=== PATIENT | male | born 2000 | race Caucasian/White ===

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

== ENCOUNTER 2018-05-10 18:32 | Emergency (ER) | payer BC, OTHER ==
[2018-05-10 18:50] VITALS: BP 147/77
--- NOTE | 2018-05-10 19:19 | UC ---
Complaint Male HPI - HPI Summary HPI Summary: C/O dysuria with penile discharge for 2 days. Unprotected sex 4 or 5 days ago. - History of Current Complaint Chief Complaint: UCGU Stated Complaint: URINARY COMPLAINT Time Seen by Provider: 05/10/18 19:10 Hx Obtained From: Patient Onset/Duration: Sudden Onset, Lasting Days - 2, Worse Since - onset Timing: Constant Severity Initially: Mild Severity Currently: Moderate Pain Intensity: 0 Location: Penis Character: Burning Aggravating Factor(s): Voiding Associated Signs And Symptoms: Positive: Dysuria, Penile Discharge - Allergies/Home Medications Allergies/Adverse Reactions: Allergies Allergy/AdvReac Type Severity Reaction Status Date / Time amoxicillin Allergy Intermediate Rash Verified 05/10/18 18:51 Home Medications: Home Medications NK [No Home Medications Reported] 05/10/18 [History Confirmed 05/10/18] PMH/Surg Hx/FS Hx/Imm Hx Previously Healthy: Yes - Surgical History Surgical History: Yes Surgery Procedure, Year, and Place: nasal surgery age 1 - Family History Known Family History: Negative: Cardiac Disease, Hypertension, Diabetes - Social History Occupation: Employed Full-time Lives: With Family Alcohol Use: None Substance Use Type: None Smoking Status (MU): Never Smoked Tobacco - Immunization History Vaccination Up to Date: Yes Review of Systems Genitourinary: Dysuria, Vaginal/Penile Burning, Vaginal/Penile Discharge Is Patient Immunocompromised?: No All Other Systems Reviewed And Are Negative: Yes Physical Exam Triage Information Reviewed: Yes Appearance: Well-Appearing, Well-Nourished, Pain Distress - mild discomfort Vital Signs: Initial Vital Signs Temp 100 F 05/10/18 18:43 Pulse 92 05/10/18 18:43 Resp 16 05/10/18 18:43 BP 147/77 05/10/18 18:43 Pulse Ox 99 05/10/18 18:43 Vital Signs Reviewed: Yes Eyes: Positive: Conjunctiva Clear Neck exam: Normal Respiratory Exam: Normal Cardiovascular Exam: Normal Abdominal Exam: Normal Bowel Sounds: Positive: Present Male Genital Exam: Positive: Normal Genitalia, Urethral Discharge - purulent discharge Complaint Male Course/Dx - Course Course Of Treatment: Patient advised likely gonorhea. Chlamydia will be treated as well. - Differential Dx/Diagnosis Differential Diagnosis/HQI/PQRI: Epididymitis, Testicular Torsion, Urinary Tract Infection Provider Diagnoses: Sexually transmitted infection Discharge - Sign-Out/Discharge Documenting (check all that apply): Patient Departure - Discharge Plan Condition: Stable Disposition: HOME Patient Education Materials: Gonorrhea (ED), Ceftriaxone (By injection), Azithromycin (By mouth), Condom Use (ED), Safe Sex (ED) Referrals: Truong Anguiano MD [Primary Care Provider] - Additional Instructions: The Health Department will call you if your cultures turn up a sexually transmitted infection. I would recommend HIV testing in 3 months. - Billing Disposition and Condition Condition: STABLE Disposition: Home
[2018-05-10] MEDS ORDERED: cefTRIAXone VIAL(*) 250 MG VIAL IM ONE (19:23)
[2018-05-10] MEDS ORDERED: Azithromycin TAB* 250 MG PO ONE (19:23)
--- NOTE | 2018-05-12 16:00 | UC ---
- Progress Note Progress Note: notify pt of results I suggest he see his provider in 3 mos for retesting Discharge - Sign-Out/Discharge Documenting (check all that apply): Post-Discharge Follow Up - Discharge Plan Condition: Stable Disposition: HOME Patient Education Materials: Azithromycin (By mouth), Ceftriaxone (By injection ), Condom Use (ED), Safe Sex (ED), Gonorrhea (ED) Referrals: Truong Anguiano MD [Primary Care Provider] - Additional Instructions: The Health Department will call you if your cultures turn up a sexually transmitted infection. I would recommend HIV testing in 3 months. - Billing Disposition and Condition Condition: STABLE Disposition: Home
== END 2018-05-10 19:50 | disposition home or self-care (01) ==
LOC: UCCORT 18:32
DX: A63.8 Other specified predominantly sexually transmitted diseases (principal); R36.9 Urethral discharge, unspecified; R30.0 Dysuria; Z88.0 Allergy status to penicillin
CPT/HCPCS: 81003; 87086; 87491; 87591; 96372; 99212; A9270-GY; G0463; J0696

== ENCOUNTER 2018-10-17 17:41 | Emergency (ER) | payer OTHER ==
[2018-10-17 18:41] VITALS: BP 132/65
--- NOTE | 2018-10-17 19:02 | UC ---
Throat Pain/Nasal [place] HPI - HPI Summary HPI Summary: C/O sore throat since this afternoon now with pain in the neck down into the upper chest and back. No regular cough or congestion, just feels achy with the sore throat much worse with coughing. - History of Current Complaint Chief Complaint: UCGeneralIllness Stated Complaint: SORE THROAT Time Seen by Provider: 10/17/18 18:52 Hx Obtained From: Patient Onset/Duration: Sudden Onset, Lasting Hours - 3 Severity: Severe Pain Intensity: 8 Cough: None Associated Signs & Symptoms: Positive: Dysphagia, Hoarseness. Negative: Sinus Discomfort, Nasal Discharge - Allergies/Home Medications Allergies/Adverse Reactions: Allergies Allergy/AdvReac Type Severity Reaction Status Date / Time amoxicillin Allergy Intermediate Rash Verified 10/17/18 18:35 PMH/Surg Hx/FS Hx/Imm Hx Respiratory History: Asthma - h/o bronchospasm needing inhaler - Surgical History Surgical History: Yes Surgery Procedure, Year, and Place: nasal surgery age 1 - Family History Known Family History: Negative: Cardiac Disease, Hypertension, Diabetes - Social History Occupation: Employed Full-time Lives: With Family Alcohol Use: None Substance Use Type: None Smoking Status (MU): Never Smoked Tobacco Household Exposure Type: Cigarettes - Immunization History Vaccination Up to Date: Yes Review of Systems All Other Systems Reviewed And Are Negative: Yes ENT: Positive: Sore Throat Musculoskeletal: Positive: Arthralgia - neck Is Patient Immunocompromised?: No Physical Exam Triage Information Reviewed: Yes Appearance: Well-Nourished, Ill-Appearing, Pain Distress - moderate Vital Signs: Initial Vital Signs Temp 99.8 F 10/17/18 18:36 Pulse 91 10/17/18 18:36 Resp 16 10/17/18 18:36 BP 132/65 10/17/18 18:36 Pulse Ox 98 10/17/18 18:36 Vital Signs Reviewed: Yes Eyes: Positive: Conjunctiva Clear ENT: Positive: Pharynx normal, TMs normal, Other - Neck tender SCM bilaterally with tenderness in the posterior cervical musculature. Neck: Positive: Tenderness @ - bilateral SCM and posterior muscles. Respiratory: Positive: Lungs clear, Wheezing - expiratory wheeze with coughing. Cardiovascular Exam: Normal Musculoskeletal Exam: Normal Neurological Exam: Normal Psychological Exam: Normal Skin Exam: Normal Throat Pain/Nasal Course/Dx - Differential Dx/Diagnosis Differential Diagnosis/HQI/PQRI: Laryngitis, Pharyngitis, Tonsillitis, URI Provider Diagnosis: Pharyngitis Discharge - Sign-Out/Discharge Documenting (check all that apply): Patient Departure All imaging exams completed and their final reports reviewed: No Studies - Discharge Plan Condition: Stable Disposition: HOME Prescriptions: predniSONE TAB* [Deltasone 20 MG TAB*] 60 mg PO DAILY #18 tab Patient Education Materials: Pharyngitis (ED), Wheezing (ED), Prednisone (By mouth) Referrals: Truong Anguiano MD [Primary Care Provider] - - Billing Disposition and Condition Condition: STABLE Disposition: Home
== END 2018-10-17 19:17 | disposition home or self-care (01) ==
LOC: UCCORT 17:41
DX: J02.9 Acute pharyngitis, unspecified (principal); Z88.0 Allergy status to penicillin
CPT/HCPCS: 87651; 99212; G0463

== ENCOUNTER 2018-12-31 12:22 | Emergency (ER) | payer OTHER ==
[2018-12-31 13:15] VITALS: BP 114/67
== END 2018-12-31 14:40 | disposition left against medical advice (07) ==
LOC: UCCORT 12:22
DX: Z53.21 Procedure and treatment not carried out due to patient leaving prior to being seen by health care provider (principal)

== ENCOUNTER 2019-05-05 18:47 | Emergency (ER) | payer OTHER ==
[2019-05-05 19:01] VITALS: BP 142/77
[2019-05-05] MEDS ORDERED: Ibuprofen TAB* 600 MG PO ONE (19:02)
--- NOTE | 2019-05-05 19:13 | UC ---
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 a female friend names Reji. -rt hand dominant. -proceeded to work today - [employer]. -no numbing or tingling. cant move 5th digiot well. - History of Current Complaint Chief Complaint: UCUpperExtremity Stated Complaint: LEFT PINKY KNUCKLE PAIN Time Seen by Provider: 05/05/19 19:12 Pain Intensity: 7 - Allergies/Home Medications Allergies/Adverse Reactions: Allergies Allergy/AdvReac Type Severity Reaction Status Date / Time amoxicillin Allergy Intermediate Rash Verified 05/05/19 19:01 PMH/Surg Hx/FS Hx/Imm Hx Previously Healthy: Yes - Surgical History Surgical History: Yes Surgery Procedure, Year, and Place: nasal surgery age 1 - Family History Known Family History: Negative: Cardiac Disease, Hypertension, Diabetes - Social History Alcohol Use: None Substance Use Type: None Smoking Status (MU): Never Smoked Tobacco Household Exposure Type: Cigarettes - Immunization History Vaccination Up to Date: Yes Review of Systems All Other Systems Reviewed And Are Negative: Yes Constitutional: Positive: Negative Skin: Positive: Negative Eyes: Positive: Negative ENT: Positive: Negative Respiratory: Positive: Negative Cardiovascular: Positive: Negative Gastrointestinal: Positive: Negative Motor: Positive: Decreased ROM, Weakness Neurovascular: Positive: Negative Musculoskeletal: Positive: Arthralgia Neurological: Positive: Negative Psychological: Positive: Negative Is Patient Immunocompromised?: No Physical Exam Triage Information Reviewed: Yes Appearance: Well-Appearing, No Pain Distress, Well-Nourished - pleasant Vital Signs: Initial Vital Signs Temp 98 F 05/05/19 18:57 Pulse 80 05/05/19 18:57 Resp 16 05/05/19 18:57 BP 142/77 05/05/19 18:57 Pulse Ox 97 05/05/19 18:57 Vital Signs Reviewed: Yes Respiratory Exam: Normal Cardiovascular Exam: Normal Musculoskeletal: Positive: Other: - left hand w/ mild swelling and bruising on ulnar aspect. tender. able to move 4th and 5th digits but decreased ROM bc pain. CR vbrisk. sensation intact. + 2 radial and ulnar pulse. Neurological Exam: Normal Psychological Exam: Normal Skin Exam: Normal Upper Extremity Course/Dx - Course Course Of Treatment: xray left hand interpreted by me - distal 5th metacarpal fracture -aware that the official rad read will be done in AM. -orthoplast temp cast set by myself in Boxer splint in usual fashion. tolerated well. - Differential Dx/Diagnosis Differential Diagnosis/HQI/PQRI: Fracture (Closed), Strain, Sprain Provider Diagnosis: Closed boxer's fracture Discharge - Sign-Out/Discharge Documenting (check all that apply): Patient Departure All imaging exams completed and their final reports reviewed: No - Discharge Plan Condition: Stable Disposition: HOME Patient Education Materials: Boxer Fracture (ED) Forms: *Work Release Referrals: Truong Anguiano MD [Primary Care Provider] - Joseph Andrade MD [Medical Doctor] - Additional Instructions: Please call ortho tomorrow for an appt in the next 1-2 days. rest. You should not use your left hand until you are cleared to do so. - Billing Disposition and Condition Condition: STABLE Disposition: Home
--- NOTE | 2019-05-06 14:02 | UC ---
- Progress Note Progress Note: Radiologist interpretation of left hand x-ray from May 05, 2019 comes back is angulated fracture of the head of the fifth metacarpal. Provider interpretation of the same date is the same therefore there is no discrepancy. Course/Dx - Diagnoses Provider Diagnoses: Closed boxer's fracture Discharge - Sign-Out/Discharge Documenting (check all that apply): Patient Departure All imaging exams completed and their final reports reviewed: Yes - Discharge Plan Condition: Stable Disposition: HOME Patient Education Materials: Boxer Fracture (ED) Forms: *Work Release Referrals: Joseph Andrade MD [Medical Doctor] - Truong Anguiano MD [Primary Care Provider] - Additional Instructions: Please call ortho tomorrow for an appt in the next 1-2 days. rest. You should not use your left hand until you are cleared to do so. - Billing Disposition and Condition Condition: STABLE Disposition: Home
== END 2019-05-05 20:15 | disposition home or self-care (01) ==
LOC: UCCORT 18:47
DX: S62.337A Displaced fracture of neck of fifth metacarpal bone, left hand, initial encounter for closed fracture (principal); W22.09XA Striking against other stationary object, initial encounter; Y92.9 Unspecified place or not applicable
CPT/HCPCS: 99212; A9270-GY; G0463

== ENCOUNTER 2019-05-18 16:36 | Emergency (ER) | payer OTHER ==
[2019-05-18 16:53] VITALS: BP 139/90
[2019-05-18] MEDS ORDERED: Tetan/Diph/Pertus SYR(Tdap)* 0.5 ML SYR(BOOSTRIX) use SYR IM ONE (16:55)
--- NOTE | 2019-05-18 16:55 | UC ---
Laceration HPI - HPI Summary HPI Summary: 18-year-old male who sustained a laceration to his right MCP joint when he was pulling his hand towards a clean razor, while he was scraping paint off of a window. Last tetanus was approximate 9 years ago. - History Of Current Complaint Chief Complaint: UCLaceration Stated Complaint: LACERATION RIGHT INDEX FINGER Time Seen by Provider: 05/18/19 16:54 Hx Obtained From: Patient Laceration Location: Hand Mechanism Of Injury: Sharp Trauma Onset/Duration: Sudden Onset Severity: Mild Pain Intensity: 0 Aggravating Factors: Movement - Allergies/Home Medications Allergies/Adverse Reactions: Allergies Allergy/AdvReac Type Severity Reaction Status Date / Time amoxicillin Allergy Intermediate Rash Verified 05/18/19 16:45 PMH/Surg Hx/FS Hx/Imm Hx Previously Healthy: Yes - Surgical History Surgical History: Yes Surgery Procedure, Year, and Place: nasal surgery age 1 - Family History Known Family History: Negative: Cardiac Disease, Hypertension, Diabetes - Social History Alcohol Use: None Substance Use Type: None Smoking Status (MU): Never Smoked Tobacco Household Exposure Type: Cigarettes - Immunization History Most Recent Tetanus Shot: PT NOT SURE Vaccination Up to Date: Yes Review of Systems All Other Systems Reviewed And Are Negative: Yes Skin: Positive: Other - Laceration over the right MCP joint approximately 1.0 cm in length. Bleeding is controlled. Is Patient Immunocompromised?: No Physical Exam Triage Information Reviewed: Yes Appearance: Well-Appearing, No Pain Distress, Well-Nourished Vital Signs: Initial Vital Signs Temp 98.7 F 05/18/19 16:45 Pulse 87 05/18/19 16:45 Resp 20 05/18/19 16:45 BP 139/90 05/18/19 16:45 Pulse Ox 100 05/18/19 16:45 Vital Signs Reviewed: Yes Musculoskeletal: Positive: Strength Intact, ROM Intact, No Edema, Other: - Good peripheral pulses neuro sensation capillary refill. Full range of motion with good finger strength with flexion extension against resistance. Neurological: Positive: Alert, Muscle Tone Normal Psychological Exam: Normal Skin: Positive: Other - 1.0 cm laceration over the right MCP joint. Bleeding is controlled. Laceration Repair - Laceration Repair 1 Description: Linear Laceration Size After Repair: Length (cm) - 1.0 cm Modified For Repair: No Type Injection: Local Anesthesia Used: 1.0% Lido Cleansing Completed Via Routine Prep: Yes Irrigation With Pressure Irrigation Device: Yes Closure Material: Sutures Suture Of: SQ Suture Type: Prolene - Sutures placed numbered 3 using 40 prolene Laceration Course/Dx - Course/Dx Course Of Treatment: The laceration was sutured without difficulty and the patient tolerated procedure well. A dry sterile bulky dressing was applied. He is to follow-up with his primary care provider in 10 days for suture removal or sooner signs of infection which were reviewed with the patient and his father. - Diagnosis Provider Diagnosis: Laceration of right hand Discharge - Sign-Out/Discharge Documenting (check all that apply): Patient Departure All imaging exams completed and their final reports reviewed: No Studies - Discharge Plan Condition: Fair Disposition: HOME Patient Education Materials: Care For Your Stitches (DC) Referrals: Truong Anguiano MD [Primary Care Provider] - Additional Instructions: Keep the dressing on for 24 hours then you may apply a knuckle bandaid. Follow- up with Dr. Anguiano in 10 days for suture removal or sooner if signs of infection such as hot, red, tender, red streaks or pus drainage. - Billing Disposition and Condition Condition: FAIR Disposition: Home
[2019-05-18] MEDS ORDERED: Lidocaine 1% MPF ** 5 ML VIAL INJ ONE (16:59)
== END 2019-05-18 17:50 | disposition home or self-care (01) ==
LOC: UCCORT 16:36
DX: S61.210A Laceration without foreign body of right index finger without damage to nail, initial encounter (principal); W26.8XXA Contact with other sharp object(s), not elsewhere classified, initial encounter; Y93.89 Activity, other specified; Y92.9 Unspecified place or not applicable; Z88.0 Allergy status to penicillin
CPT/HCPCS: 12001; 90471; 90715; 99211; G0463

== ENCOUNTER 2019-05-28 09:27 | Emergency (ER) | payer OTHER ==
--- OUTSIDE RECORDS SUMMARY | 2019-05-28 09:44 | XMS REPORT | Continuity of Care Document ---
:2000 External Reference #:[id number] Author Name Ivan Downing Care Team Providers Name Role Phone Truong Anguiano MD Primary Care Physician Unavailable Payers Date Identification Numbers Payment Provider Subscriber Policy Number: [id number] [place] Group Number: [id number] Group Name: Medicaid Tanf/[place] [address] PayID: [id number] Social History Type Date Description Comments Sex Unknown Lives With Alone Occupation [employer] ETOH Use Denies alcohol use Tobacco Use Start: Unknown Patient has never smoked Smoking Status Reviewed: 05/27/19 Patient has never smoked Exercise Type/Frequency Does not exercise Allergies, Adverse Reactions, Alerts Active Allergies Reaction Severity Comments Date Amoxicillin 05/06/2019 Medications Description No Active Medications Vital Signs Date Vital Result Comment 05/27/2019 3:43pm Height 71 inches 5'11" Weight 160.00 lb Heart Rate 73 /min BP Systolic Sitting 122 mmHg BP Diastolic Sitting 84 mmHg Respiratory Rate 14 /min Pain Level 8 O2 % BldC Oximetry 98 % BMI (Body Mass Index) 22.3 kg/m2 05/06/2019 3:13pm Height 71 inches 5'11" Weight 160.00 lb Heart Rate 80 /min BP Systolic Sitting 142 mmHg BP Diastolic Sitting 80 mmHg Respiratory Rate 16 /min Pain Level 9 O2 % BldC Oximetry 98 % BMI (Body Mass Index) 22.3 kg/m2 Encounters Type Date Location Provider Dx Diagnosis Office Visit 05/06/2019 Orthopedic Brianne Villagomez, [phone] Nondisp fx of 2:[facility] neck of fifth metacarpal bone, left hand, init Plan of Treatment Future Appointment(s):06/17/2019 8:00 am - Brian[facility]/27/2019 - Brianne Villagomez M.D.[phone] Nondisplaced fracture of neck of fifth metacarpal bone, left hand, subsequent encounter forfracture with routine healingFollow up:Follow up: As needed
--- OUTSIDE RECORDS SUMMARY | 2019-05-28 09:44 | XMS REPORT | Continuity of Care Document ---
:2000 External Reference #:[id number] Author Name Truong Anguiano MD Address [address] [place] [address] Care Team Providers Name Role Phone Truong Anguiano MD Primary Care Physician Unavailable Payers Date Identification Numbers Payment Provider Subscriber Policy Number: [id number] [facility] PayID: [id number] [address] [place] [address] Policy Number: [id number] Medicaid Colleen Fahey PayID: [id number] [address] [place] [address] Problems Active Problems Provider Date Migraine AMINAH Adams Onset: Heart murmur Truong Anguiano MD Onset: 05/25/2019 Note: fu cardiology Rectal hemorrhage Truong Anguiano MD Onset: 05/25/2019 Note: fu GI Family History Date Family Member(s) Observation Comments Father Anxiety Social History Type Date Description Comments Sex Unknown Tobacco Use Start: Unknown Home is not smoke-free Pets 2 dogs Tobacco Use Start: Unknown Never Smoked Cigars Tobacco Use Start: Unknown Never Smoked A Pipe Tobacco Use Start: Unknown Never Used Smokeless Tobacco ETOH Use occasionally ETOH Use Occasionally consumes alcohol Tobacco Use Start: Unknown tried to smoke cigarettes but does not smoke now Recreational Drug Use Current Drug User Guns in Home Yes Smoke Alarms Yes Currently Active Patient is currently sexually active Condom Use Always Allergies, Adverse Reactions, Alerts Active Allergies Reaction Severity Comments Date Amoxicillin / Clavulanate Urticaria Mild rash 02/21/2017 Inactive Allergies NKDA 05/19/2013 Medications Active Medications SIG Qnty Indications Ordering Provider Date Lactulose 10ml by mouth 237ml R01.1 Truong 05/25/2019 10GM/15ML twice a day MD Annmarie Solution History Medications No Active Unknown 01/05/2019 - Medications 05/25/2019 Azithromycin 1 tab by mouth 5tabs J02.0 Christina Stephan, PHYSICIAN/ALLERGY/IMMUNOLOGY 12/31/2018 - 500mg once a day x 5 01/05/2019 Tablets days No Active Unknown 06/25/2018 - Medications 12/31/2018 Ofloxacin (Otic) 10 drops to left 10ml H60.8x2 Christina Stephan, PHYSICIAN/ALLERGY/IMMUNOLOGY 02/17/2017 - 0.3% ear twice daily 02/27/2017 Solution x 7 days Zithromax 2 tabs day one 6tabs 486 [facility] 02/23/2015 - 250mg one tab day 2-5 MD Annmarie 02/28/2015 Tablets Proair HFA 2-4 puffs 4hr as 1units 486 [facility] 02/23/2015 - needed MD Annmarie 03/05/2015 108(90Base) mcg/Act Aerosol Tessalon 1 tab by mouth 30caps 465.9 [facility] 05/20/2014 - 200mg three times a MD Annmarie 05/30/2014 Capsules day as needed Rizatriptan Benzoate 1 PO on onset of 10tabs V20.2 [facility] 07/27/2013 - headache MD Annmarie 05/31/2014 10mg Tablets Fluoride 1 po qd 90units V20.2 [facility] 07/27/2013 - 1.1(0.5F) mg MD Annmarie 05/31/2014 Chewtabs No Active Unknown 05/19/2013 - Medications 05/19/2013 Rizatriptan Benzoate 1 PO on onset of 10tabs [facility] 05/19/2013 - headache MD Annmarie 07/27/2013 5mg Tablets Miralax 17 grams by 510gm [facility] 05/19/2013 - 3350NF Powder mouth every day MD Annmarie 06/25/2018 as needed mix w/ 8oz water /juice Imitrex 1-2 po q4hrs prn 9tabs [facility] 05/05/2013 - 25mg Tablets MD Annmarie 05/19/2013 Medications Administered in Office Medication SIG Qnty Indications Ordering Provider Date vACCINE Admin Over 18 Truong Anguiano MD 06/25/2018 Injection Immunizations CPT Code Status Date Vaccine Lot # [id number] Given 06/25/2018 Trumenba [id number] 48365 Given 03/13/2017 Trumenba [id number] 50721 Given 08/06/2016 Flu Vaccine, Split [id number] 67254 Given 08/31/2015 Flu Vaccine, Split [id number] 10784 Given 07/06/2015 Hep.B Pediatric/Adolescent [id number] 70738 Given 07/25/2014 Flu Vaccine, Split [id number] 92487 Given 07/27/2013 Flu Vaccine, Split [id number] 26787 Given 07/13/2012 Flu Vaccine, Split 37481 Given 01/10/2012 Gardasil 76522 Given 09/09/2011 Gardasil 41067 Given 07/26/2011 Flu Mist 65827 Given 07/08/2011 Gardasil 73033 Given 08/20/2010 Flu Vaccine, Split 77578 Given 07/03/2010 Menactra/menveo 82062 Given 12/12/2009 Tdap/Adacel 25853 Given 09/14/2009 H1N1 56463 Given 08/01/2009 Flu Mist 17335 Given 07/10/2009 IPV 47356 Given 07/10/2009 Hib Vaccine. 76251 Given 08/09/2008 Flu Mist 39392 Given 06/29/2008 Hepatitis A Vaccine 07332 Given 06/29/2008 Varicella/Chicken Pox Vaccine 95723 Given 09/21/2007 Flu Vaccine, Split 91094 Given 01/02/2007 Flu Vaccine, Split 71857 Given 01/02/2007 Hepatitis A Vaccine 22805 Given 08/01/2005 DTaP 62892 Given 10/25/2004 Flu Mist 69524 Given 05/01/2004 IPV 94945 Given 05/01/2004 MMR 10624 Given 05/01/2004 DTaP 89504 Given 05/01/2004 Hib Vaccine. 32171 Given 12/05/1999 MMR 90660 Given 12/05/1999 Varicella/Chicken Pox Vaccine 07095 Given 12/05/1999 Menactra/menveo 60761 Given 06/11/1999 DTaP 02950 Given 03/28/1999 Hep.B Pediatric/Adolescent 11669 Given 03/28/1999 DTaP 90608 Given 03/28/1999 Hib Vaccine. 51390 Given 01/22/1999 Hep.B Pediatric/Adolescent 25981 Given 01/22/1999 DTaP 66017 Given 01/22/1999 Hib Vaccine. 31008 Given 1998 Hep.B Pediatric/Adolescent Vital Signs Date Vital Result Comment 05/25/2019 10:33am Body Temperature 97.5 F Weight 150.38 lb 12/31/2018 3:32pm Body Temperature 98.0 F BP Systolic 116 mmHg BP Diastolic 58 mmHg Weight 146.50 lb 06/25/2018 12:18pm BP Systolic 125 mmHg BP Diastolic 75 mmHg Heart Rate 72 /min Height 70.75 inches 5'10.75" Height Percentile 66 % Weight 165.00 lb Weight Percentile 66th BMI (Body Mass Index) 23.2 kg/m2 Body Mass Index Percentile 55 % Right Visual Acuity Distance WNL Left Visual Acuity Distance WNL Right ear audiology results pass Left ear audiology results pass 03/13/2017 1:58pm BP Systolic 118 mmHg manual BP Diastolic 62 mmHg manual 03/13/2017 1:52pm BP Systolic 134 mmHg BP Diastolic 67 mmHg Heart Rate 86 /min 02/21/2017 1:13pm Body Temperature 98.2 F 02/17/2017 10:29am Body Temperature 100.5 F BP Systolic 138 mmHg BP Diastolic 79 mmHg Heart Rate 125 /min Height 71 inches 5'11" Height Percentile 72 % Weight 154.00 lb Weight Percentile 58th BMI (Body Mass Index) 21.5 kg/m2 Body Mass Index Percentile 43 % Right Visual Acuity Distance 20/20 Left Visual Acuity Distance 20/20 08/31/2015 8:17am Body Temperature 97.8 F 08/10/2015 10:04am BP Systolic 129 mmHg BP Diastolic 80 mmHg Heart Rate 62 /min Height 71 inches 5'11" Height Percentile 78 % Weight 179.38 lb Weight Percentile 91st BMI (Body Mass Index) 25.0 kg/m2 Body Mass Index Percentile 87 % Right Visual Acuity Distance passed Left Visual Acuity Distance passed Right ear audiology results passed Left ear audiology results passed 07/06/2015 12:29pm Body Temperature 98.4 F 02/23/2015 1:25pm Body Temperature 98.6 F Heart Rate 80 /min Respiratory Rate 24 /min 05/31/2014 9:25am BP Systolic 122 mmHg BP Diastolic 71 mmHg Heart Rate 77 /min Height 70.25 inches 5'10.25" Height Percentile 81 % Weight 193.25 lb Weight Percentile >97th BMI (Body Mass Index) 27.5 kg/m2 Body Mass Index Percentile 96 % Right Visual Acuity Distance 20/20 Left Visual Acuity Distance 20/20 Right ear audiology results passed Left ear audiology results passed 05/20/2014 8:44am Body Temperature 98.2 F 07/27/2013 9:38am BP Systolic 125 mmHg BP Diastolic 88 mmHg Heart Rate 73 /min Height 69 inches 5'9" Height Percentile 82 % Weight 174.12 lb Weight Percentile 96th BMI (Body Mass Index) 25.7 kg/m2 Body Mass Index Percentile 93 % Right Visual Acuity Distance 20/20 Left Visual Acuity Distance 20/20 Right ear audiology results 20 db wnl Left ear audiology results 20 db wnl 05/19/2013 5:12pm BP Systolic 121 mmHg BP Diastolic 69 mmHg Heart Rate 74 /min 07/13/2012 3:36pm BP Systolic 123 mmHg BP Diastolic 72 mmHg Heart Rate 65 /min Height 67 inches 5'7" Height Percentile 88 % Weight 151.50 lb Weight Percentile 94th BMI (Body Mass Index) 23.7 kg/m2 Body Mass Index Percentile 90 % 07/08/2011 3:37pm Height 63 inches 5'3" Height Percentile 81 % Weight 135.00 lb Weight Percentile 93rd BMI (Body Mass Index) 23.9 kg/m2 Body Mass Index Percentile 93 % 07/03/2010 3:38pm BP Systolic 117 mmHg BP Diastolic 80 mmHg Heart Rate 85 /min Height 60.5 inches 5'0.50" Height Percentile 83 % Weight 129.25 lb Weight Percentile 96th BMI (Body Mass Index) 24.8 kg/m2 Body Mass Index Percentile 96 % 07/10/2009 3:38pm BP Systolic 15 mmHg BP Diastolic 70 mmHg Heart Rate 89 /min Height 58 inches 4'10" Height Percentile 80 % Weight 119.00 lb Weight Percentile 97th BMI (Body Mass Index) 24.9 kg/m2 Body Mass Index Percentile 97 % Results Test Date Facility Test Result H/L Range Note Laboratory test 10/17/2018 [facility] Rapid Strep Negative Negative 1 finding [phone] Molecular Chlam/GC/Trichom 06/25/2018 [facility] Ur Trichomonas Negative Negative 2 onas PCR, Ur [address] vaginalis,PCR [place], [place] [id number] [phone] Ur Chlamydia trachomatis,PCR Negative Negative Ur Neisseria gonorrhoeae,PCR Negative Negative 3 HIV 1/2 Rapid 06/25/2018 [facility] HIV 1/2 Unigold Non-Reactive [address] [place] [address] [phone] HCV Rna By 06/25/2018 [facility] Hepatitis C HCV Not Detected . 5 PCR (Quant) [address] IU/mL [place], [place] [id number] [phone] Test Info (SEE NOTE) 6 Laboratory test 06/25/2018 [facility] Treponema Negative Negative finding [address] [place] [address] [place] [phone] Hepatitis 06/25/2018 [facility] Hepatitis A Negative Negative Evaluation [address] Antibody IgM [place], [place] [id number] [phone] HBsAg Screen [Ref Lab] Negative Negative Hepatitis B Core IgM Negative Negative HCV Signal/Cutoff ratio < 0.1 s/corat 0.0-0.9 7 Laboratory test 06/25/2018 [facility] HSV II,Igg,Type <0.91 index 0.00-0.90 [address] Specific [place], [place] [id number] [phone] Poc Urinalysis 05/10/2018 [facility] Poc Glucose, Negative Negative [phone] Urine Poc Bilirubin, Urine Negative Negative Poc Ketone, Urine 1+ Abnormal Negative Poc Specific [place], Urine 1.010 Normal 1.010-1.030 Poc Blood, Urine 2+ Abnormal Negative Poc pH, Urine 5.5 Normal 5-9 Poc Protein, Urine Negative Negative Poc Urobilinogen, Urine 0.2 Negative Poc Nitrite, Urine Negative Negative Poc Leukocytes, Urine 3+ Abnormal Negative Poc Color, Urine Other Poc Clarity, Urine Slightly Cloudy 9 Urine Culture 05/10/2018 [facility] Urine Culture SEE RESULT 10 And [phone] BELOW Sensitivities GC/Chlamydia 05/10/2018 [facility] Chlamydia Positive Abnormal Negative Amplified Rna [phone] trachomatis Rna Neisseria gonorrhoeae (GC) Rna Positive Abnormal Negative CBC Auto Diff 02/21/2017 [facility] White Blood 5.6 10^3/uL Normal 3.5-10.8 [phone] Count Red Blood Count 5.07 10^6/uL Normal 4.0-5.4 Hemoglobin 15.2 g/dL Normal 14.0-18.0 Hematocrit 45 % Normal 42-52 Mean Corpuscular Volume 89 fL Normal 80-94 Mean Corpuscular Hemoglobin 30 pg Normal 27-31 Mean Corpuscular HGB Conc 34 g/dL Normal 31-36 Red Cell Distribution Width 13 % Normal 10.5-15 Platelet Count 194 10^3/uL Normal 150-450 Mean Platelet Volume 9 um3 Normal 7.4-10.4 Abs Neutrophils 2.7 10^3/uL Normal 1.5-7.7 Abs Lymphocytes 2.3 10^3/uL Normal 1.0-4.8 Abs Monocytes 0.4 10^3/uL Normal 0-0.8 Abs Eosinophils 0.1 10^3/uL Normal 0-0.6 Abs Basophils 0 10^3/uL Normal 0-0.2 Abs Nucleated RBC 0.01 10^3/uL Normal Granulocyte % 47.9 % Normal 38-83 Lymphocyte % 42.2 % Normal 25-47 Monocyte % 7.2 % Normal 1-9 Eosinophil % 2.0 % Normal 0-6 Basophil % 0.7 % Normal 0-2 Nucleated Red Blood Cells % 0.2 Normal Eulalio Gonzalez 02/21/2017 [facility] Ebv Capsid Positive Normal Negative [facility] [phone] Ag IgG Ab Ebv Capsid Ag IgM Ab Negative Normal Negative Eulalio-Gonzalez Nuclear Antigen Positive Normal Negative Eulalio-Gonzalez Virus Interp See Comment Normal 11 Throat Culture 02/17/2017 [facility] Throat Culture NORMAL 12, [address] [place] [address] <SEE NOTE> [phone] LDL Cholesterol 05/31/2014 [facility] Cholesterol 134 mg/dL 120- Profile [address] [place], [place] [id number] [phone] Triglycerides 81 mg/dL 16-231 HDL Cholesterol 53 mg/dL 29-83 LDL-Cholesterol 65 mg/dL 62-185 1 File Clerk Data Entry: [id number] 2 Z70.9 3 A negative result for either C. trachomatis and/or N. gonorrhoeae does not preclued an infection because results are dependent on adequate specimen collection, absence of inhibitors, and sufficient DNA to be detected. 4 NOTE: A NON-REACTIVE RESULT INDICATES THAT HIV 1/2 ANTIBODIES HAVE NOT BEEN FOUND IN THIS PATIENT SPECIMEN. A NON-REACTIVE RESULT, HOWEVER, DOES NOT PRECLUDE PREVIOUS EXPOSURE OF INFECTION WITH HIV 1/2. Method: Uni-Gold Recombigen HIV 1/2 Rapid Immunoassay [employer] * [place] STATE LAW PROHIBITS THE REDISCLOSURE OF THIS RESULT * * TO ANY UNAUTHORIZED CONSTITUTION PARTY. * 10/02/18 1240: HIV 1/2 Unigold previously reported as: Non-Reactive NO CALL INDICATED,RESULT THE SAME, REGULATORY COMMENT ADDED Amended result called to: - 10/02/18 at 1240 5 HCV Not Detected 6 The quantitative range of this assay is 15 IU/mL to 100 million IU/mL. 7 INFCE Result Units: s/co ratio Negative: < 0.8 Indeterminate: 0.8 - 0.9 Positive: > 0.9 The CDC recommends that a positive HCV antibody result be followed up with a HCV Nucleic Acid Amplification test (840603). Performed at: [address] [id number] Infantry Operations Specialist: Bebe Larson MD, Phone: [phone] Performed at: [address] [id number] [employer] Operations Specialist: Galileo Maynard MD, Phone: [phone] Negative <0.91 Equivocal 0.91 - 1.09 Positive >1.09 Note: Negative indicates no antibodies detected to HSV-2. Equivocal may suggest early infection. If clinically appropriate, retest at later date. Positive indicates antibodies detected to HSV-2. Performed at: [address] [id number] [employer] Operations Specialist: Bebe Larson MD, Phone: [phone] File Clerk Data Entry: [id number] SEE RESULT BELOW Name: DIGNA LUONG : [address]: Darwin Khanna MD Acct: [id number] Unit: [id number] AGE: 17 Location: [facility] Re05/10/18 SEX: M Status: DEP ER SPEC: [id number] ABNER: 05/10/18 [facility] DR: Darwin Khanna MD REQ: [id number] RECD: 05/11/18 STATUS: EL PACKER DR: Truong Anguiano MD _ SOURCE: URINE SPDESC: ORDERED: Urine Culture Procedure Result Reported Site Urine Culture Final 05/12/18- 1354 ML No Growth (<1,000 CFU/mL) * ML - Main Lab . END OF REPORT DEPARTMENT OF PATHOLOGY, [address] [place] [address] John Collins M.D. Director [facility] # [id number] RESULT: Results suggest past infection. ADDITIONAL INFORMATION In most populations, at least 90% of the adult population will have been infected with EBV sometime in the past and therefore, will be positive for anti-VCA/IgG and anti- EBNA. Antibodies to EBNA develop 6-8 weeks after primary infection and remain present for life. Presence of VCA/ IgM antibodies indicates recent primary infection with EBV. Test Performed by: [address] [id number] 12 J02.9 13 NORMAL THROAT GILMAR Procedures Date Code Description Status 06/25/2018 06203 Visual Acuity Screen Bilat. Completed 06/25/2018 47905 Brief Emotional/Behav Assessment W/ Scoring Doc Per Completed Standard Inst 06/25/2018 51556 Brief Emotional/Behav Assessment W/ Scoring Doc Per Completed Standard Inst 06/25/2018 15455 Auditometry, Pure Tone Bilat Completed 06/25/2018 89563 Venipuncture Over 3 Yrs Old Completed 08/09/2017 67098 Wart Removal 1-14 Completed 02/21/2017 41062 Cerumen Removal Completed 02/17/2017 86868 Cerumen Removal Completed 02/17/2017 68814 Auditometry, Pure Tone Bilat Completed 02/17/2017 12691 Visual Acuity Screen Bilat. Completed 08/10/2015 66151 Visual Acuity Screen Bilat. Completed 08/10/2015 72322 Auditometry, Pure Tone Bilat Completed 05/31/2014 22261 Visual Acuity Screen Bilat. Completed 05/31/2014 73399 Auditometry, Pure Tone Bilat Completed 07/27/2013 68716 Visual Acuity Screen Bilat. Completed 07/27/2013 43618 Auditometry, Pure Tone Bilat Completed 07/13/2012 05423 Auditometry, Pure Tone Bilat Completed 07/13/2012 01978 Visual Acuity Screen Bilat. Completed 07/08/2011 21804 Visual Acuity Screen Bilat. Completed 07/08/2011 43997 Auditometry, Pure Tone Bilat Completed 07/03/2010 72637 Visual Acuity Screen Bilat. Completed 07/03/2010 70753 Auditometry, Pure Tone Bilat Completed 03/07/2010 84615 Cerumen Removal Completed 07/10/2009 07443 Visual Acuity Screen Bilat. Completed 07/10/2009 56852 Auditometry, Pure Tone Bilat Completed 06/29/2008 30428 Auditometry, Pure Tone Bilat Completed 06/29/2008 38460 Visual Acuity Screen Bilat. Completed 07/11/2006 01037 Removal Of Foreign Body, Skin Completed 09/03/2005 51534 Removal Object From Nose Completed 08/01/2005 15373 Auditometry, Pure Tone Bilat Completed 03/15/2005 89548 Cerumen Removal Completed 12/20/2004 60195 Cerumen Removal Completed 05/01/2004 43403 Hearing Test Completed 05/01/2004 31717 Vision Test Completed Encounters Type Date Location Provider Dx Diagnosis Office Visit 12/31/2018 Main Office Christina Rothman NP J02.0 Streptococcal 3:15p pharyngitis Office Visit 06/25/2018 Main Office Truong Z00.01 Encounter for general 12:00p MD Annmarie adult medical exam w abnormal findings Z70.9 Sex counseling, unspecified Office Visit 02/21/2017 1:00p Main Office Christina Rothman NP J02.9 Acute pharyngitis, unspecified L50.0 Allergic urticaria H61.23 Impacted cerumen, bilateral H61.21 Impacted cerumen, right ear J03.90 Acute tonsillitis, unspecified Office Visit 02/17/2017 10:30a Main Office Christina Rothman NP Z00.00 Encntr for general adult medical exam w/o abnormal findings H61.23 Impacted cerumen, bilateral H60.8x2 Other otitis externa, left ear J03.90 Acute tonsillitis, unspecified J02.9 Acute pharyngitis, unspecified Office Visit 08/10/2015 10:00a Main Office AMINAH Adams Z00.121 Encounter for routine child health exam w abnormal findings J06.9 Acute upper respiratory infection, unspecified G44.209 Tension-type headache, unspecified, not intractable Z71.41 Alcohol abuse counseling and surveillance of alcoholic Office Visit 02/23/2015 1:15p Main Office Truong Anguiano MD 486 Pneumonia Organism Unspec Office Visit 05/31/2014 9:15a Main Office Truong Anguiano MD V20.2 Routine Or Child Health Check V65.42 Counseling On Substance Use & Abuse Office Visit 05/20/2014 8:30a Main Office AMINAH Adams 465.9 URI Upper Respiratory Infections Acute Unspec Sites Office Visit 07/27/2013 9:45a Main Office Truong V20.2 Routine Infant Or MD Annmarie Child Health Check V65.42 Counseling On Substance Use & Abuse Office Visit 05/19/2013 5:15p Main Office AMINAH Adams 784.0 Headache Office Visit 02/16/2013 7:30a Main Office Truong 784.0 Headache MD Annmarie Office Visit 01/13/2013 11:30a Main Office Truong 472.0 Rhinitis Chronic MD Annmarie Office Visit 01/08/2013 9:15a Main Office Truong 465.9 URI Upper MD Annmarie Respiratory Infections Acute Unspec Sites 477.9 Rhinitis Allergic Cause Unspec Office Visit 12/28/2012 1:15p Main Office Truong 784.0 Headache MD Annmarie Office Visit 10/28/2012 9:00a Main Office Truong 465.9 URI Upper MD Annmarie Respiratory Infections Acute Unspec Sites Office Visit 09/16/2012 7:30a Main Office Truong 842.01 Sprains & Strains MD Annmarie Wrist & Hand Carpal (Joint) Office Visit 09/02/2012 8:00a Main Office Truong 842.09 Sprains & Strains MD Annmarie Wrist & Hand Other Office Visit 07/20/2012 5:15p Main Office Truong 845.09 Sprains & Strains MD Annmarie Ankle Other Office Visit 07/13/2012 4:15p Main Office Truong V20.2 Routine Or MD Annmarie Child Health Check V65.42 Counseling On Substance Use & Abuse Office Visit 01/30/2012 7:15a Main Office Truong 300.02 Anxiety Disorder MD Annmarie Generalized Office Visit 07/08/2011 4:00p Main Office Truong V20.2 Routine Or MD Annmarie Child Health Check V65.42 Counseling On Substance Use & Abuse Office Visit 02/08/2011 8:00a Main Office Truong 719.42 Pain Joint Upper MD Annmarie Arm Office Visit 12/13/2010 8:00a Main Office Truong 959.3 Injury Elbow MD Annmarie Forearm & Wrist Other & Unspec Office Visit 11/29/2010 8:00a Main Office Truong 719.43 Pain Joint MD Annmarie Forearm Office Visit 08/20/2010 2:30p Main Office Truong 079.9 Viral Infection MD Annmarie Office Visit 07/03/2010 1:15p Main Office Truong V20.2 Routine Or MD Annmarie Child Health Check V65.42 Counseling On Substance Use & Abuse V03.89 Bacterial Diseases Single Vaccination Spec Other Office Visit 03/07/2010 7:45a Main Office Truong Anguiano MD 719.46 Pain Joint Lower Leg 380.4 Impacted Cerumen Office Visit 07/10/2009 9:30a Main Office Truong Anguiano MD V20.2 Routine Infant Or Child Health Check V65.42 Counseling On Substance Use & Abuse V04.0 Poliomyelitis Vaccination & Inoculation Office Visit 12/20/2008 3:15p Main Office Truong Anguiano MD 608.9 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 Unspec Office Visit 06/29/2008 4:30p Main Office Truong Anguiano MD V20.2 Routine Infant Or Child Health Check V65.42 Counseling On Substance Use & Abuse Office Visit 11/30/2007 11:00a Main Office Mohammad 486 Pneumonia Organism MD Annmarie Unspec Office Visit 09/21/2007 3:30p Main Office Mohamm[place] 465.9 CASSIDY Anguiano MD Respiratory Infections Acute Unspec Sites Office Visit 01/19/2007 3:30p Main Office [place] 465.9 CASSIDY Anguiano MD Respiratory Infections Acute Unspec Sites 079.9 Viral Infection Office Visit 07/11/2006 12:30p Main Office Mohammad 919.6 Injury Superficial MD Annmarie Foreign Body Oth Mult Unsp W/O Infection Office Visit 05/19/2006 2:30p Main Office Mohamm[place]ie 692.9 Dermatitis Unspec MD Annmarie Cause Due To Spec Agents Other Office Visit 09/17/2005 5:15p Main Office Moh[place] 932 Foreign Body Nose MD Annmarie Office Visit 09/03/2005 3:30p Main Office [place] 932 Foreign Body Nose MD Annmarie Office Visit 08/01/2005 3:00p Main Office [place] 684 Impetigo MD Annmarie Office Visit 07/25/2005 5:00p Main Office Mohammasusie V04.8 Need For MD Annmarie Vaccination & Inoculation Other Viral Diseases Office Visit 03/15/2005 10:30a Main Office Mohammad 686.00 Pyoderma Unspec MD Annmarie 380.4 Impacted Cerumen Office Visit 02/14/2005 4:15p Main Office Truong Anguiano MD 079.9 Viral Infection 462 Pharyngitis Acute Office Visit 12/20/2004 4:45p Main Office [place] 465.9 CASSIDY Anguiano MD Respiratory Infections Acute Unspec Sites 380.4 Impacted Cerumen Office Visit 07/30/2004 2:45p Main Office Truong 465.9 CASSIDY Anguiano MD Respiratory Infections Acute Unspec Sites Office Visit 07/16/2004 11:15a Main Office [place] 472.0 Rhinitis Chronic MD Annmarie Office Visit 07/13/2004 2:00p Main Office El[place] 465.9 CASSIDY Anguiano MD Respiratory Infections Acute Unspec Sites 462 Pharyngitis Acute Office Visit 05/01/2004 3:15p Main Office Truong Anguiano MD V20.2 Routine Or Child Health Check Plan of Treatment Future Appointment(s):07/27/2019 4:00 pm - Truong Anguiano MD at Main [id number] - Truong Anguiano MDK62.5 Hemorrhage of anus and rectumComments:refer to GI and [id number] Cardiac murmur, unspecifiedNew Medication:Lactulose 10 GM/15ML - 10ml by mouth twice a day
[2019-05-28 09:52] VITALS: BP 120/68
--- NOTE | 2019-05-28 10:05 | UC ---
HPI Wound/Suture Re-check - HPI Summary HPI Summary: 3 stitches in his right hand placed 10 days ago. He has no complaints. - History Of Current Complaint Chief Complaint: UCLaceration Stated Complaint: STITCH REMOVAL-DONE HERE Time Seen by Provider: 05/28/19 09:56 Hx Obtained From: Patient Onset/Duration: Lasting Days - 10 Surgical Site: right hand Pain Intensity: 0 - Allergies/Home Medications Allergies/Adverse Reactions: Allergies Allergy/AdvReac Type Severity Reaction Status Date / Time amoxicillin Allergy Intermediate Rash Verified 05/28/19 09:49 PMH/Surg Hx/FS Hx/Imm Hx Previously Healthy: Yes - Surgical History Surgical History: Yes Surgery Procedure, Year, and Place: nasal surgery age 1 - Family History Known Family History: Negative: Cardiac Disease, Hypertension, Diabetes - Social History Alcohol Use: None Substance Use Type: None Smoking Status (MU): Never Smoked Tobacco Household Exposure Type: Cigarettes - Immunization History Most Recent Tetanus Shot: 05/18/19 Vaccination Up to Date: Yes Review of Systems All Other Systems Reviewed And Are Negative: Yes Physical Exam - Summary Physical Exam Summary: Well-healed wound over the right second MPJ dorsum. [address] Triage Information Reviewed: Yes Appearance: Well-Appearing Vital Signs: Initial Vital Signs Temp 98.3 F 05/28/19 09:49 Pulse 70 05/28/19 09:49 Resp 16 05/28/19 09:49 BP 120/68 05/28/19 09:49 Pulse Ox 100 05/28/19 09:49 Musculoskeletal Exam: Normal Neurological Exam: Normal Skin Exam: Normal - Wound well healed. Procedures - Laceration/Wound Repair r Location: upper extremity Description: Linear Course/Dx - Course Course Of Treatment: 3 sutures were removed without difficulty by myself. - Diagnosis Provider Diagnosis: Visit for suture removal Discharge - Sign-Out/Discharge Documenting (check all that apply): Patient Departure All imaging exams completed and their final reports reviewed: No Studies - Discharge Plan Condition: Stable Disposition: HOME Patient Education Materials: Stitches Removal (ED) Referrals: Truong Anguiano MD [Primary Care Provider] - - Billing Disposition and Condition Condition: STABLE Disposition: Home
== END 2019-05-28 10:09 | disposition home or self-care (01) ==
LOC: UCCORT 09:27
DX: Z48.02 Encounter for removal of sutures (principal)